=== PATIENT | male | born 1955 | race Caucasian/White ===

== ENCOUNTER → 2016-11-23 | Outpatient (CLI) | payer BC ==
[~2016-11-23] MED LIST: AMBIEN5 MG PO; GABAPENTIN100 MG PO
== END ==
LOC: COL.RAD 10:11
DX: M12.88 Other specific arthropathies, not elsewhere classified, other specified site (principal)

== ENCOUNTER → 2016-11-30 | Outpatient (CLI) | payer BC | LOC: MHCPAIN 11:52 | DX: G89.29 Other chronic pain (principal); M47.817 Spondylosis without myelopathy or radiculopathy, lumbosacral region; M53.3 Sacrococcygeal disorders, not elsewhere classified | CPT/HCPCS: G0463 ==

== ENCOUNTER → 2016-12-09 | Outpatient (CLI) | payer BC | LOC: MHCPAIN 10:09 | DX: M47.817 Spondylosis without myelopathy or radiculopathy, lumbosacral region (principal) ==

== ENCOUNTER → 2016-12-15 | Outpatient (CLI) | payer BC | LOC: MHCPAIN 12:08 | DX: G89.29 Other chronic pain (principal); M47.817 Spondylosis without myelopathy or radiculopathy, lumbosacral region; M53.3 Sacrococcygeal disorders, not elsewhere classified | CPT/HCPCS: G0463 ==

== ENCOUNTER → 2016-12-16 | Outpatient (CLI) | payer BC | LOC: MHCPAIN 11:42 | DX: M47.817 Spondylosis without myelopathy or radiculopathy, lumbosacral region (principal) ==

== ENCOUNTER → 2016-12-22 | Outpatient (CLI) | payer BC | LOC: MHCPAIN 10:38 | DX: G89.29 Other chronic pain (principal); M47.817 Spondylosis without myelopathy or radiculopathy, lumbosacral region; M53.3 Sacrococcygeal disorders, not elsewhere classified | CPT/HCPCS: G0463 ==

== ENCOUNTER → 2016-12-22 | Outpatient (CLI) | payer BC | LOC: COL.RAD 14:25 | DX: M47.816 Spondylosis without myelopathy or radiculopathy, lumbar region (principal); M53.3 Sacrococcygeal disorders, not elsewhere classified ==

== ENCOUNTER → 2016-12-30 | Outpatient (CLI) | payer BC | LOC: MHCPAIN 08:16 | DX: M47.817 Spondylosis without myelopathy or radiculopathy, lumbosacral region (principal) | CPT/HCPCS: J1100; J2250; J3010 ==

== ENCOUNTER → 2017-01-26 | Outpatient (CLI) | payer BC | LOC: MHCPAIN 12:21 | DX: G89.29 Other chronic pain (principal); M47.817 Spondylosis without myelopathy or radiculopathy, lumbosacral region; M53.3 Sacrococcygeal disorders, not elsewhere classified | CPT/HCPCS: G0463 ==

== ENCOUNTER → 2017-03-03 | Outpatient (CLI) | payer BC | LOC: COL.RAD 09:14 | DX: M19.011 Primary osteoarthritis, right shoulder (principal); M19.012 Primary osteoarthritis, left shoulder; M89.9 Disorder of bone, unspecified | CPT/HCPCS: A9503 ==

== ENCOUNTER → 2018-08-01 | Outpatient (CLI) | payer BC | LOC: MHCPAIN 08:41 | DX: G89.29 Other chronic pain (principal); M47.817 Spondylosis without myelopathy or radiculopathy, lumbosacral region; M53.3 Sacrococcygeal disorders, not elsewhere classified | CPT/HCPCS: G0463 ==

== ENCOUNTER 2019-04-16 15:04 | Day surgery (SDC) | payer MEDICARE, OTHER ==
[~2019-04-16] VITALS: Ht 172.7 cm; Wt 122.0 kg
[2019-04-16] MEDS ORDERED: NEURONTIN400 MG/CAP PO (15:28)
[2019-04-16] MEDS ORDERED: ZYLOPRIM 100MG100 MG PO (15:29)
[2019-04-16] MEDS ORDERED: AMBIEN 10MG10 MG PO (15:29)
[2019-04-16] MEDS ORDERED: FLOMAX 0.40.4 MG/CAP PO (15:29)
[2019-04-16] MEDS ORDERED: TYLENOL 325MG325 MG PO (15:30)
[2019-04-16] MEDS ORDERED: ASPIRIN 81M81 MG/TA2 PO (15:30)
[2019-04-16] MEDS ORDERED: CYMBALTA 60MG60 MG PO (15:30)
[2019-04-16] MEDS ORDERED: VITAMIND3 5000 PO (15:31)
[2019-04-16 15:56] VITALS: BP 126/76; PULSE 66; TEMP 97.6
--- NOTE | 2019-04-16 16:00 | NUR ---
Patient sitting on bedside chair comfortably watching TV, waiting for physican to arrive. Patient report and care given to SIMI Blackmon.
[2019-04-16 17:15] VITALS: BP 112/65; PULSE 60; TEMP 98
--- NOTE | 2019-04-16 17:15 | NUR ---
Pt to [facility] [address] via cart. Pt awake and alert. VSS. Bandaid to left little finger and is clean, dry, and intact. Pt denies pain or nausea. Side rails up x2. Will continue to monitor. Call light within reach.
[2019-04-16] MEDS ORDERED: MOTRIN 600600 MG/TAB PO (17:19)
[2019-04-16] MEDS ORDERED: CEPHALEXIN500 M1 PO (17:19)
[2019-04-16] MEDS ORDERED: ULTRAM 50MG TAB50 MG PO ×2 (17:20→17:21)
--- NOTE | 2019-04-16 17:41 | NUR ---
Discharge instructions reviewed. Pt voices understanding. Pt ambulatory upon discharge. Nurse escorts pt to front entrance. Pt able to drive self home.
== END 2019-04-16 17:43 | disposition home or self-care (01) ==
LOC: SDCO 15:04
DX: M79.5 Residual foreign body in soft tissue (principal); Z83.3 Family history of diabetes mellitus; Z82.49 Family history of ischemic heart disease and other diseases of the circulatory system; Z90.49 Acquired absence of other specified parts of digestive tract

== ENCOUNTER → 2021-10-09 | Outpatient (CLI) | payer MEDICARE, OTHER ==
[~2021-10-09] MED LIST changes: +AMBIEN 10MG10 MG PO; +ASPIRIN 81M81 MG/TA2 PO; +CEPHALEXIN500 M1 PO; +CYMBALTA 60MG60 MG PO; +FLOMAX 0.40.4 MG/CAP PO; +MOTRIN 600600 MG/TAB PO; +NEURONTIN400 MG/CAP PO; +TYLENOL 325MG325 MG PO; +ULTRAM 50MG TAB50 MG PO; +VITAMIND3 5000 PO; +ZYLOPRIM 100MG100 MG PO
== END ==
LOC: COL.RAD 11:02
DX: N20.1 Calculus of ureter (principal); K57.30 Diverticulosis of large intestine without perforation or abscess without bleeding; J84.10 Pulmonary fibrosis, unspecified